=== PATIENT | male | born 1945 | race Caucasian/White ===

== ENCOUNTER → 2019-01-13 | Outpatient (REF) | payer BC ==
[2019-01-13 17:20] LABS: CREATININE, URINE 83.1 MG/DL; MALB URINE SIEMENS 17.1 MG/L; MAU/CREAT RATIO 20.5 MCG/MG (0.0-30.0)
[2019-01-13 17:27] LABS: CALCIUM LEVEL 10.3 MG/DL (8.8-10.2); CHOLESTEROL RISK RATIO 5.25 (<5); CREATININE FOR GFR 1.53 MG/DL (0.70-1.30); POTASSIUM SERUM 4.2 MEQ/L (3.5-5.1)
[2019-01-13 18:02] LABS: HEMOGLOBIN A1c 8.7 %
== END ==
LOC: M SFHCCLAY 09:37
PROVIDERS: ATTEND Family Medicine
DX: E11.9 Type 2 diabetes mellitus without complications (principal)

== ENCOUNTER → 2019-04-14 | Outpatient (REF) | payer BC ==
[2019-04-14 17:36] LABS: CALCIUM LEVEL 10.2 MG/DL (8.8-10.2); CREATININE FOR GFR 1.52 MG/DL (0.70-1.30); GLOMERULAR FILTRATION RATE 48.4 (>42)
[2019-04-14 18:03] LABS: HEMOGLOBIN A1c 8.2 %
== END ==
LOC: M SFHCCLAY 10:02
PROVIDERS: ATTEND Family Medicine
DX: E11.9 Type 2 diabetes mellitus without complications (principal); I10 Essential (primary) hypertension

== ENCOUNTER → 2019-04-20 | Outpatient (CLI) | payer BC ==
--- NOTE | 2019-04-20 14:27 | REP ---
BILATERAL LOWER EXTREMITY DUPLEX DOPPLER ARTERIAL ULTRASOUND: Real-time ultrasound evaluation and duplex Doppler interrogation of bilateral lower extremity arterial systems is performed. Moderate scattered plaquing is seen bilaterally. Biphasic and triphasic waveforms are seen bilaterally. Both posterior tibial arteries are occluded at the mid third calf level bilaterally. Otherwise no stenosis is seen bilaterally. There is a Blackmon's cyst on the right popliteal fossa medially measuring 1.9 x 0.4 x 1.0 cm with internal echoes. Posterior to the right medial malleolus note is made of fluid surrounding a tendon at that location suggesting tenosynovitis. PEAK SYSTOLIC VELOCITY RIGHT LEFT Common femoral artery 70.3 cm/s 69.0 cm/s Profunda 66.0 60.0 Proximal SFA 98.0 58.0 Superficial femoral artery mid 80.0 58.0 Superficial femoral artery distal 53.0 50.0 Popliteal 39.0 46.0 Proximal anterior tibial artery 65.0 55.0 Tibioperoneal trunk 55.0 49.3 Proximal posterior tibial artery 35.0 32.0 Distal posterior tibial artery Occluded Occluded Distal anterior tibial artery 83.0 89.0 IMPRESSION: Moderate scattered plaquing bilateral lower extremity arterial systems. 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 Otherwise no significant stenosis. Unreviewed
== END ==
LOC: M RAD 11:59
PROVIDERS: ATTEND Family Medicine
DX: R29.898 Other symptoms and signs involving the musculoskeletal system (principal)

== ENCOUNTER → 2019-07-20 | Outpatient (REF) | payer BC ==
[2019-07-20 17:17] LABS: HEMOGLOBIN A1c 7.4 %
[2019-07-20 17:22] LABS: CALCIUM LEVEL 9.8 MG/DL (8.8-10.2); CREATININE FOR GFR 1.56 MG/DL (0.70-1.30); GLOMERULAR FILTRATION RATE 46.9 (>42); POTASSIUM SERUM 4.5 MEQ/L (3.5-5.1)
== END ==
LOC: M SFHCCLAY 13:33
PROVIDERS: ATTEND Family Medicine
DX: Z51.81 Encounter for therapeutic drug level monitoring (principal); Z79.899 Other long term (current) drug therapy; E11.9 Type 2 diabetes mellitus without complications

== ENCOUNTER → 2019-10-18 | Outpatient (REF) | payer BC ==
[2019-10-18 17:47] LABS: CALCIUM LEVEL 9.6 MG/DL (8.8-10.2); CREATININE FOR GFR 1.52 MG/DL (0.70-1.30); GLOMERULAR FILTRATION RATE 48.2 (>42); POTASSIUM SERUM 4.4 MEQ/L (3.5-5.1)
[2019-10-18 18:51] LABS: HEMOGLOBIN A1c 7.8 %
== END ==
LOC: M SFHCCLAY 13:26
PROVIDERS: ATTEND Family Medicine
DX: E11.9 Type 2 diabetes mellitus without complications (principal); I11.9 Hypertensive heart disease without heart failure